=== PATIENT | female | born 1980 | race Hispanic/Latino ===

== ENCOUNTER 2018-04-15 08:21 | Observation (INO) | payer OTHER ==
[2018-04-12 13:17] VITALS: BMI 20.9
[2018-04-15 09:31] LABS: HEMOGLOBIN 12.2 g/dL (12.0-16.0); MEAN CELL VOLUME 90.6 fl (81.0-99.0); MEAN CORPUSCULAR HEMOGLOBIN 30.2 pg (27.0-31.0); MEAN CORPUSCULAR HGB CONC 33.4 g/dL (33.0-37.0); RBC 4.05 Mil/uL (3.80-5.20); RED CELL DISTRIBUTION WIDTH 13.4 % (11.5-14.5); WHITE BLOOD COUNT 3.3 K/uL (4.8-10.8)
[2018-04-15] MEDS ORDERED: ceFAZolin IV 2 gm in Dextrose 2 GM/50 ML BAG IVPB ONE (11:49)
[2018-04-15] MEDS ORDERED: Propofol 10 mg/ml Inj (20 ML) ONE (11:51)
[2018-04-15] MEDS ORDERED: Succinylcholine 200 mg/10 ml Inj IV ONE (11:51)
[2018-04-15] MEDS ORDERED: Lidocaine 4% (Laryng-O-Jet) Kit MM ONE (11:51)
[2018-04-15] MEDS ORDERED: Rocuronium 10 mg/ml (5 ml) ONE ×2 (11:51→13:16)
[2018-04-15] MEDS ORDERED: Ketamine 50 mg/ml Inj (10 ml) ONE (11:53)
[2018-04-15] MEDS ORDERED: Lactated Ringer's 1,000 ML IV ONE (11:55)
[2018-04-15] MEDS ORDERED: Lactated Ringer's 500 ML IV ONE ×3 (12:00→16:50)
[2018-04-15] MEDS ORDERED: Midazolam 2 MG/2 ML VIAL ONE (12:00)
[2018-04-15] MEDS ORDERED: Bupivacaine HCl 0.5% PF (10 ml) Inj IJ ONE (12:25)
[2018-04-15] MEDS ORDERED: oxyCODONE 5 mg Immediate Release Tab PO PRN (14:50)
[2018-04-15] MEDS ORDERED: HYDROmorphone 0.5 mg/0.5 ml ISec IVP PRN (15:06)
[2018-04-15] MEDS ORDERED: Lactated Ringer's 1,000 ML IV SCH (15:15)
[2018-04-16 08:01] VITALS: BP 110/69; PULSE 64; RESP 16; TEMP 98.1; O2SAT 98
--- NOTE | 2018-04-17 12:10 | PCM.OP ---
Operative Report - Operative Report Date of Surgery/Procedure: 04/15/18 Time of Surgery/Procedure: 08:00 Surgeon: Dr. Miguel Hopkins Agricultural Commodities Inspector: Dr. Jose Alejandra Anesthesia/Sedation: general/Dr. Rey Pre-Operative Diagnosis: abdominal pain and endometriosis Post-Operative Diagnosis: intestinal involvement Indication for Surgery: as above Operative Findings: as above Procedure/Operation Description: 1-Excision perirectal endometriosis. 2- Appendectomy. Brief Histroy: This 38 year old woman was already brought to the operationg room by Dr. Alejandra when he noted intestinal involvement. General surgery was consulted. Description of the Procedure: Dr. Alejandra had already initiated the robotic procedure (separate dictationDr. Alejandra). After taking control of the robotic consol the first lesion in the rectum was examined and with electrocautery and blunt and shrp dissection it was excised circumfernetially and sent to pathology separately. Our attention then turned to the veriform appendix and with anterior traction the mesentery was dessicarted with electrocauery to the base. Using three 3-0 vicryl endoloops the appendix was ligated andtrnasected and snet to aptholgy separately. Hemostasis was deemed adeqaute and all counts were corect. The operation was then again turned over to Dr. Alejandra (separate dictation). Estimated Blood Loss: 5 cc Complications: none Discharge & Condition: stable
--- NOTE | 2018-04-30 15:01 | OP ---
PROCEDURE DATE: 04/15/18 SURGEON: Jose Alejandra MD BIOMECHANICAL ENGINEER: Miguel Hopkins MD ANESTHESIOLOGIST: Eugenie Tam MD ANESTHETIC: General Endo PREOPERATIVE DIAGNOSES: 1. Incapacitating pelvic pain. 2. Incapacitating abdominal pain. 3. Abnormal uterine bleeding. 4. History of pelvic endometriosis. 5. History of previous failed medical surgical therapy. 6. History of severe endometriosis and pelvic adhesions. 7. Gastrointestinal and genitourinary symptoms. 8. Rule out interstitial cystitis. 9. Adenomyosis. 10: Bilateral ovarian Endometriomas POSTOPERATIVE DIAGNOSES: 1. Incapacitating pelvic pain. 2. Incapacitating abdominal pain. 3. Abnormal uterine bleeding. 4. History of pelvic endometriosis. 5. History of previous failed medical surgical therapy. 6. History of severe endometriosis and pelvic adhesions. 7. Gastrointestinal and genitourinary symptoms. 8. Left Hydrosalpinx 9. Adenomyosis. 10. Severe pelvic endometriosis. 11. Ovarian adhesions. 12. Bowel adhesions. 13. Bilateral Endometriomas 14. Mild bilateral hydroureters. OPERATION PERFORMED: 1. Examination under anesthesia. 2. Video_assisted hysteroscopy. 3. Robotic da Rahul laparoscopy. 4. Bilateral Ovarian cystectomy 5. Enterolysis. 6. Bilateral ureterolysis. 7. Bilateral salpingo_ovariolytis. 8. Multiple peritoneal biopsies and excision of endometriosis. 9. Treatment of endometriosis. 10. Shaving of endometriosis of the bowel. 11. Cystoscopy. 12. Bilateral ureteral catheterization and injection of IC-Green dye. 13: Left Salpingectomy Dr. Hopkins from General Surgery was consulted to perform an appendectomy and he will dictate that separately. COMPLICATIONS: None. SAMPLES: left pelvic sidewall left periureteral right periureteral left endometrioma right endometrioma posterior cervical anterior rectal right cul de sac left cul de sac DRAINS: none ESTIMATED BLOOD LOSS: Minimal. FINDINGS: Genitalia : normal external genitalia, cervix normal without lesions or polyps. Hysteroscopy clear cavity with no evidence of eadenomyosis or polyps . no other lesions visualized. Cystoscopy was performed to rule out endometriosis of bladder mucosa and also interstitial cystitis, also injury. The bladder was normal with no evidence of stone, trigonitis or cystitis. Positive jet flow visualized in both ureters. Laparoscopy upper abdomen was normal, gallbladder was normal, liver edges appeared to be normal. Ascending colon and transverse were normal. The appendix appeared to be abnormal with both fibrosis and thickening. There was evidence of severe adhesions, fibrosis and endometriosis of the rectovaginal septum and attachment of the bowel to the posterior aspect of the uterus and to both the right and left adnexa. Both ovaries were severely attached to the posterior aspect of the ureters with endometriosis and adhesions. Both ovaries had suendometriomas on them. Fallopian tubes appeared to have some inflammatory changes of adhesions, the left tube was enlarged and thickened the right tube appeared to be normal. Both ovaries appeared to be involved with scar. There was also evidence of endometriosis of the rectovaginal septum in right and left perirectal areas and cirrhosis of both ureters, posterior cul_ de_sac and anterior cul_de_sac. 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 There was also evidence of mild bilateral hydroureters. CONSENT: The patient had been thoroughly evaluated and counseled regarding pros and cons of the procedure, the reasonable alternative, and the possible complications. She understood and accepted the risks involved. Appropriate literature was provided to the patient. The patient was in understanding that given her history and presurgical exam, she knows that she was a high risk and average patient. She accepted all the risks involved and all the questions had been answered to her satisfaction. DESCRIPTION OF PROCEDURE: Initiation of the case: After adequate anesthesia was obtained, the patient was placed in the dorsal lithotomy position with extreme care of placement of the patient without hyperextension or hyperflexing the hips. At this point, the patient was prepped and draped, the surgeon was gowned and gloved. A time- out was taken according to the hospital procedure and the procedure was started. At this point, we performed the cystoscopy and bilateral ureteral catheterization. At this point we performed a cystoscopy A cystoscope was inserted into the bladder, under direct visualization and the bladder was visualized. The bladder was free of lesions, tumors. There was no evidence of interstitial cystitis, and there was only a mild amount of trigonitis. At this point, both ureters were identified and appeared to be in normal anatomical position. At this point, utilizing an open-ended 5-[place] catheter, the left ureter was catheterized all the way to the distal ureter, and a 5 mL of IC-Green were injected into the distal ureter. Similarly, on the contralateral ureter, the ureter was catheterized all the way to the distal ureter, and a 5 mL of IC-Green were injected into the distal ureter. At this point, the stents were removed, and the hysteroscope was removed and a 16- [place] Haskins was placed into the bladder. At this point, we proceeded with a hysteroscopy. A speculum was placed in the vagina, and the anterior lip of the cervix was grasped. The cervix was dilated and a hysteroscope was inserted into the cavity. The cavity appeared to be of normal size, At this point, we proceeded with placement of the trocars and docking of the da Rahul Xi robot. The surgeons were regowned and regloved, and an open laparoscopy was performed by making an incision below the umbilicus, and the fascia was incised , and the peritoneum was entered in the blunt fashion. The cannula was inserted and the abdomen was insufflated, and under direct visualization 3 additional ports were inserted, left upper quadrant, left mid quadrant and right upper quadrant. At this point, the da Rahul Xi robot was brought into the field and docked, and the instruments were inserted under direct visualization. With extreme care not to injure the bowel or any other area. As per the dictation, the upper abdomen appeared to be normal with no evidence of any lesions. The pelvis had the findings described above, which included significant adhesions, fibrosis of the posterior cul-de-sac, significant endometriosis with deep endometriosis nodules. Both ovary adherent to both the ovarian fossas and the posterior aspect of the uterus with significant inflammatory changes. At this point, we proceeded with the left ureterolysis. The left ureter appeared to dilated and it was clearly identified utilizing fluorescent technology. An incision was made on the peritoneum at the top of the pelvic brim, and incision was then carried down all the way opening the peritoneum and all the way down from the pelvic brim all the way down to the ovarian fossa extending the incision below the ovary. It was a progressive dissection where the ureter was progressively lateralized and the peritoneum medialized, thus freeing the ureter all the way down to the crossing of the uterine vessels. After this was done and the ureter was freed and lateralized and a large area of peritoneum, which had been opened up was excised and sent to pathology. At this point, after ureter had been identified, we were able to elevate the ovary and dissect it from the left pelvic side wall in the left ovarian fossa, At this point, we proceeded with the left ovariolysis. The ovary was gently dissected and elevated off the ovarian fossa and area of fibrosis of endometriosis were exposed. At this point we proceeded with removal of the left endometrioma An incision was made on the ovary and "chocolate fluid" was aspirated. the edge of the cyst was grasped and peeled off the ovary. The stromal and cortical ovarian tissue was not dameged. The cyst wall was sent to pathology. At this point, we proceeded with the right ureterolysis. The right ureter was identified and again utilizing florescent technology, the retroperitoneal space was entered and a full dissection was performed entering the retroperitoneal space and dissecting the ureter, removing the ureter laterally and the peritoneum medially. A full dissection was performed all the way down to the ovarian fossa, on the crossing of the uterine arteries. A large area of peritoneum containing endometriosis was also dissected and sent to Pathology. At this point, we proceeded with a right ovariolysis. The right ovary was progressively elevated, areas of deep endometriosis and superficial endometriosis were dissected out and the ovary was finally elevated. At this point we proceeded with removal of theright endometrioma An incision was made on the ovary and "chocolate fluid" was aspirated. the edge of the cyst was grasped and peeled off the ovary. The stromal and cortical ovarian tissue was not dameged. The cyst wall was sent to pathology. At this point, we proceeded with a treatment of endometriosis and excision of endometriosis. On the left hand side, a large area of peritoneum, where containing endometriosis was excised in the left ovarian fossa with the upper margin of the excision at the utero_ovarian ligament all the way down to the uterosacral ligament. Large areas of fibrosis were identified in posterior cul-de-sac and the rectovaginal space was affected with endometriosis and severe fibrosis. The rectovaginal area was then dissected and the space was opened, and we were able to dissect the rectum away from the posterior aspect of the cervix. Additional areas of endometriosis were dissected from the posterior aspect of the Uterus. At this point, we proceeded with excision of the endometriosis on the right hand side where similarly in a full excision of endometriosis was performed by performing incision from starting at the right utero_ovarian ligament all the way down to the right uterosacral ligament. At this point, Dr. Hopkins from General Surgery was called in and he performed an excision of rectal endometriosis, which she will dictate separately. At this point, it was checked for hemostasis and appeared to be excellent. All the endometriosis had been excised. Once this was done, it was checked for hemostasis and appeared to be excellent. The consult was handed to Dr. Hopkins, who performed the appendectomy and he will dictate that separately. After this was done, it was checked for hemostasis and appeared to be excellent. The pelvis was irrigated. The da Rahul Xi robot was removed. The abdomen desufflated. The instruments were removed. The incisions were closed in layers with 0 PDS for the fascia and 4-0 Monocryl for the skin. The patient was awakened up and taken to recovery room in excellent condition. Jose Alejandra MD [facility]
== END 2018-04-16 12:05 | disposition home or self-care (01) ==
LOC: H.OPSURG 08:21 → H.ERHOLD 14:49 → H.PEDS 17:11 → H.OPSURG 21:26 → H.PEDS 21:58
PROVIDERS: ADMIT Obstetrics & Gynecology Reproductive Endocrinology; ATTEND Obstetrics & Gynecology Reproductive Endocrinology
DX: N80.5 Endometriosis of intestine (principal); N93.9 Abnormal uterine and vaginal bleeding, unspecified; N80.3 Endometriosis of pelvic peritoneum; N70.11 Chronic salpingitis; N73.6 Female pelvic peritoneal adhesions (postinfective); N80.1 Endometriosis of ovary; N80.4 Endometriosis of rectovaginal septum and vagina; N80.0 Endometriosis of uterus
CPT/HCPCS: 36415; 44950; 45171; 49203; 49999; 52000; 58700; 58940; 58999; 85027; 86850; 86900; 88304; 88305; C1729; G0378; J0131; J0330; J0690; J1170; J1885; J2001; J2250; J2704; J3010; J7030; J7120